=== PATIENT | female | born 1970 | race Two or more races ===

== ENCOUNTER 2019-09-16 16:53 | Emergency (ER) | payer OTHER ==
[2019-09-16] MEDS ORDERED: KETOROLAC TROMETHAMINE INJ/PF 30 MG/1 ML SDV IV ONE ×2 (17:26→19:48)
--- NOTE | 2019-09-16 17:29 | ER Document Report ---
ED Medical Screen (RME) - General Chief Complaint: Abdominal Pain Stated Complaint: ABDOMINAL PAIN, COUGH,CONGESTION Time Seen by Provider: 09/16/19 17:18 Notes: 40-year-old female with history of gastric bypass surgery 2 years ago, fibromyalgia, arthritis, frequent costochondritis presents to the emergency department with epigastric and right upper quadrant pain for the past 1+ week that got acutely worse today. Patient also has a cough and congestion. Patient states that the right upper quadrant pain is constant and stabbing. Nothing makes it better or worse. Is not worse after meals. Radiates around to her right upper back. Complains of fevers and chills, denies nausea or vomiting. Exam: Well-appearing no acute distress, lungs clear to auscultation, regular cardiac rate and rhythm, abdominal exam deferred in triage I have greeted and performed a rapid initial assessment of this patient. A comprehensive ED assessment and evaluation of the patient, analysis of test results and completion of medical decision making process will be conducted by an additional ED providers. - Related Data Allergies/Adverse Reactions: azithromycin [From Zithromax] Allergy (Verified 09/16/19 17:19) cefdinir [From Omnicef] Allergy (Verified 09/16/19 17:19) NSAIDS (Non-Steroidal Anti-Inflamma Adverse Reaction (Verified 09/16/19 17:19) Past Medical History - Social History Chew tobacco use (# tins/day): No Frequency of alcohol use: None Drug Abuse: None Physical Exam - Vital signs Vitals: Temp Pulse Resp BP Pulse Ox 98.0 F 83 15 101/65 99 09/16/19 17:00 09/16/19 17:00 09/16/19 17:00 09/16/19 17:00 09/16/19 17:00 Course - Vital Signs Vital signs: Temp Pulse Resp BP Pulse Ox 98.0 F 83 15 101/65 99 09/16/19 17:00 09/16/19 17:00 09/16/19 17:00 09/16/19 17:00 09/16/19 17:00
--- NOTE | 2019-09-16 18:06 | RADIOLOGY REPORT (SQ) ---
EXAM DESCRIPTION: U/S ABDOMEN LTD W/DOPPLER COMPLETED DATE/TIME: 09/16/2019 5:58 pm REASON FOR STUDY: RUQ pain COMPARISON: None. TECHNIQUE: Dynamic and static grayscale images acquired of the right upper quadrant and recorded on PACS. Additional selected color Doppler and spectral images recorded. LIMITATIONS: Study limited due to acoustical interference from fat or from air in the bowel. FINDINGS: PANCREAS: Visualized pancreas and duct normal. Parts of pancreas poorly seen secondary to acoustical interference from fat or from air in the bowel. LIVER: No masses. Echotexture normal. LIVER VASCULATURE: Normal directional flow of the main portal vein and hepatic veins. GALLBLADDER: Contracted without gross stones or suspicious wall thickening or pericholecystic fluid. ULTRASOUND-DETECTED SEVERINO'S SIGN: Negative. INTRAHEPATIC DUCTS AND COMMON DUCT: CBD and intrahepatic ducts normal caliber. No filling defects. INFERIOR VENA CAVA: Normal flow. AORTA: No aneurysm. RIGHT KIDNEY: Normal size. Normal echogenicity. No solid or suspicious masses. No hydronephrosis. No calcifications. PERITONEAL CAVITY AND RIGHT PLEURAL SPACE: No ascites or effusions. OTHER: No other significant finding. IMPRESSION: NORMAL RIGHT UPPER QUADRANT ULTRASOUND. PANCREAS PARTIALLY OBSCURED BY GAS. TECHNICAL DOCUMENTATION: JOB ID: [id number] [employer]- All Rights Reserved Reading location - IP/workstation name: [email or web address]
[2019-09-16 18:08] LABS: AMORPHOUS SEDIMENT,URINE TRACE /HPF; APPEARANCE,URINE SLIGHTLY-CLOUDY; BILIRUBIN,URINE NEGATIVE (NEGATIVE); COLOR,URINE YELLOW; GLUCOSE, URINE NEGATIVE (NEGATIVE); KETONES,URINE NEGATIVE (NEGATIVE); LEUKOCYTE ESTERASE,URINE NEGATIVE (NEGATIVE); NITRITE,URINE NEGATIVE (NEGATIVE); PROTEIN,URINE NEGATIVE (NEGATIVE); URINE SPECIFIC GRAVITY 1.016
[2019-09-16 18:47] LABS: ABSOLUTE BASOPHILS # (AUTO) 0.1 10^3/uL (0.0-0.2); ABSOLUTE EOSINOPHILS # (AUTO) 0.2 10^3/uL (0.0-0.6); ABSOLUTE LYMPHOCYTES (AUTO) 2.4 10^3/uL (0.5-4.7); ABSOLUTE MONOCYTES (AUTO) 0.5 10^3/uL (0.1-1.4); ABSOLUTE NEUT (AUTO) 5.8 10^3/uL (1.7-8.2); BASOPHILS % (AUTO) 0.7 % (0-2); EOSINOPHILS % (AUTO) 1.7 % (0-6); HEMATOCRIT 35.3 % (36.0-47.0); HEMOGLOBIN 12.3 g/dL (12.0-15.5); LYMPHOCYTES % (AUTO) 26.6 % (13-45); MEAN CORPUSCULAR HEMOGLOBIN 31.1 pg (27.0-33.4); MEAN CORPUSCULAR HGB CONC 34.8 g/dL (32.0-36.0); MEAN CORPUSCULAR VOLUME 89 fl (80-97); MONOCYTES % (AUTO) 6.1 % (3-13); PLATELET COUNT 259 10^3/uL (150-450); RED BLOOD COUNT 3.95 10^6/uL (3.72-5.28); RED CELL DISTRIBUTION WIDTH 13.2 % (11.5-14.0); SEGMENTED NEUTROPHILS % (AUTO) 64.9 % (42-78); TOTAL CELLS COUNTED % (AUTO) 100 %; WHITE BLOOD COUNT 8.9 10^3/uL (4.0-10.5)
[2019-09-16 19:09] LABS: A TYPE INFLUENZA AG NEGATIVE (NEGATIVE); B INFLUENZA AG NEGATIVE (NEGATIVE)
--- NOTE | 2019-09-16 19:13 | RADIOLOGY REPORT (SQ) ---
EXAM DESCRIPTION: CHEST 2 VIEWS COMPLETED DATE/TIME: 09/16/2019 7:04 pm REASON FOR STUDY: Cough congestion, chest pain COMPARISON: None. TECHNIQUE: Frontal and lateral radiographic views of the chest acquired. NUMBER OF VIEWS: Two view. LIMITATIONS: None. FINDINGS: LUNGS AND PLEURA: No opacities, masses or pneumothorax. No pleural effusion. MEDIASTINUM AND HILAR STRUCTURES: No masses or contour abnormalities. HEART AND VASCULAR STRUCTURES: Heart normal size. No evidence for failure. BONES: No acute findings. HARDWARE: None in the chest. OTHER: No other significant finding. IMPRESSION: NO SIGNIFICANT RADIOGRAPHIC FINDING IN THE CHEST. TECHNICAL DOCUMENTATION: JOB ID: [id number] [employer]- All Rights Reserved Reading location - IP/workstation name: [email or web address]
--- NOTE | 2019-09-16 19:18 | ER Document Report ---
Entered by GLORIA PENNINGTON SCRIBE 09/16/19 1806 Acting as scribe for:ROZINA ESTES MD ED General - General Chief Complaint: Abdominal Pain Stated Complaint: ABDOMINAL PAIN, COUGH,CONGESTION Time Seen by Provider: 09/16/19 17:18 Mode of Arrival: Ambulatory Information source: Patient Notes: This 48 year old female patient with a history of gastric bypass surgery p resents to the ED today with complaints of epigastric and RUQ pain for the past x3 days that has become more severe last night. Patient has an extensive past medical history involving her lower abdomen and states that this is the first time she has experienced pain in the upper abdomen. Patient states that she has had a productive cough and congestion for the past x1 week and has been taking tessalon perles and an albuterol nebulizer. Patient reports associated nasal drainage, but denies nausea or vomiting. Patient notes that she has not received a flu shot this year. - Related Data Allergies/Adverse Reactions: azithromycin [From Zithromax] Allergy (Verified 09/16/19 17:19) cefdinir [From Omnicef] Allergy (Verified 09/16/19 17:19) NSAIDS (Non-Steroidal Anti-Inflamma Adverse Reaction (Verified 09/16/19 17:19) Past Medical History - General Information source: Patient - Social History Smoking Status: Never Smoker Cigarette use (# per day): No Chew tobacco use (# tins/day): No Smoking Education Provided: No Frequency of alcohol use: None Drug Abuse: None Family History: Reviewed & Not Pertinent Patient has suicidal ideation: No Patient has homicidal ideation: No Pulmonary Medical History: Reports: Other - Costochondritis Renal/ Medical History: Reports: Hx Pelvic Inflammatory Disease Past Surgical History: Reports: Hx Appendectomy, Hx Gastric Bypass Surgery, Hx Hysterectomy, Hx Tubal Ligation Review of Systems - Review of Systems Constitutional: No symptoms reported EENT: See HPI, Nose congestion, Other - Nasal drainage Respiratory: See HPI, Cough, Sputum Gastrointestinal: See HPI, Abdominal pain. denies: Nausea, Vomiting Genitourinary: No symptoms reported Female Genitourinary: No symptoms reported Musculoskeletal: No symptoms reported Skin: No symptoms reported Hematologic/Lymphatic: No symptoms reported Neurological/Psychological: No symptoms reported -: Yes All other systems reviewed and negative Physical Exam - Vital signs Vitals: Temp Pulse Resp BP Pulse Ox 98.0 F 83 15 101/65 99 09/16/19 17:00 09/16/19 17:00 09/16/19 17:00 09/16/19 17:00 09/16/19 17:00 Interpretation: Normal - General General appearance: Alert - HEENT Head: Normocephalic, Atraumatic Eyes: Normal Pupils: PERRL Sinus: Other - Congestion Nasal: Clear rhinorrhea Pharynx: Normal - Respiratory Respiratory status: No respiratory distress Chest status: Tender - Right anterior lateral chest wall tenderness with palpation. Right inferior lateral chest wall tenderness with palpation. Breath sounds: Normal Chest palpation: Tender - Very tender to palpate the right upper quadrant abdomen, the right anterior inferior ribs, the right inferior lateral ribs. Pain is also made worse with deep breath, cough, and trying to do a sit up. - Cardiovascular Rhythm: Regular Heart sounds: Normal auscultation Murmur: No - Abdominal Inspection: Normal Distension: No distension Bowel sounds: Normal Tenderness: Tender - RUQ tenderness with palpation. Tender with palpation in area lateral and above rib margin. Organomegaly: No organomegaly - Back Back: Normal, Nontender - Extremities General upper extremity: Normal inspection General lower extremity: Normal inspection. No: Edema - No peripheral edema. - Neurological Neuro grossly intact: Yes - Psychological Associated symptoms: Normal affect, Normal mood - Skin Skin Temperature: Warm Skin Moisture: Dry Skin Color: Normal Course - Re-evaluation Re-evalutation: 09/16/19 19:19 Influenza test is negative. White blood cell count is consistent with a viral infection. Gallbladder ultrasound is negative, chest x-ray is negative. Urinalysis is unremarkable. Chem-12 was unremarkable. The patient has inhalers and nebulizer medications at home for wheezing if needed. She does have Tessalon Perles that she has been taking for cough. She does have oxycodone she takes on as-needed basis for pain, and I have advised her that this will also help with cough suppression. We will add prednisone to her regimen, and recommend she try Delsym DM for additional cough suppression. She is also recommended to limit talking as much as possible. All of these recommendations should help reduce her coughing, and in turn help reduce the chest wall and right upper quadrant abdominal wall pain she has been having related to her cough. - Vital Signs Vital signs: Temp Pulse Resp BP Pulse Ox 98.0 F 83 15 101/65 99 09/16/19 17:00 09/16/19 17:00 09/16/19 17:00 09/16/19 17:00 09/16/19 17:00 - Laboratory Result Diagrams: 09/16/19 18:25 09/16/19 18:25 Laboratory results interpreted by me: 09/16/19 09/16/19 09/16/19 17:30 18:25 18:25 Hct 35.3 L Glucose 71 L Urine Blood SMALL H Urine Urobilinogen 4.0 H - Diagnostic Test Radiology reviewed: Image reviewed, Reports reviewed - Gallbladder ultrasound is unremarkable. Chest x-ray is unremarkable. Discharge - Discharge Clinical Impression: Viral upper respiratory tract infection with cough Muscle strain of chest wall Qualifiers: Encounter type: initial encounter Qualified Code(s): S29.011A - Strain of muscle and tendon of front wall of thorax, initial encounter Condition: Stable Disposition: HOME, SELF-CARE Additional Instructions: Upper Respiratory Illness You have a viral infection of the respiratory passages -- a "cold." This common infection causes nasal congestion, drainage, and often sore throat and cough. It is caused by a virus and is highly contagious. The disease usually lasts a week or more, though the worst symptoms are usually over in 3 or 4 days. There is no "cure" for the viral infection -- it must run its course. If there is a complication, such as bacterial infection in the nose, sinuses, middle ear, or bronchial tubes, antibiotics may be required, but antibiotics won't affect the virus. If you smoke, you should STOP!! Drink plenty of fluids. A humidifier may help. An expectorant medication or decongestant may make you more comfortable. Use acetaminophen or ibuprofen for fever or aches. See the doctor if fever persists over two or three days, if there is any significant worsening of your symptoms, or if you simply fail to improve as expected. Chest Wall Pain Your chest pain has been diagnosed as coming from the chest wall. This is often caused by straining the muscles or joints in the chest during physical activity, direct trauma, coughing, or vigorous vomiting. Persons with arthritis are especially prone to this type of pain, due to inflammation of the cartilage joints near the breast bone. Occasionally, no cause can be found. Rest from strenuous physical activity. This kind of chest pain is usually made worse by movement of the chest. Depending on the symptoms, we may prescribe medicine for pain, muscle relaxation, and antiinflammatory effects. If the pain is new, and seems to be due to muscle strain, cold packs can help. Otherwise, apply gentle warmth to the painful area for 15 minutes every hour or two. You should contact the doctor immediately if things change. Further evaluation is needed if you develop a fever or cough, if the nature of the pain changes, or if you become short of breath. Start the prednisone tomorrow. Continue your inhalers and nebulizer medication as needed. Continue taking Tessalon Perles, take 200 mg every 8 hours for cough control. Take your oxycodone pain medication to help with pain and to help suppress your cough. Try adding the generic version of Delsym DM to help suppress your cough. Drink plenty of fluids and get plenty of rest. Rest your voice is much as possible. Follow-up with your primary care provider if not improving. RETURN TO THE EMERGENCY ROOM IF ANY NEW OR WORSENING SYMPTOMS. Prescriptions: Prednisone [Deltasone 10 mg Tablet] 10 mg PO ASDIR PRN #21 tablet PRN Reason: Scribe Attestation: 09/16/19 19:50 I personally performed the services described in the documentation, reviewed and edited the documentation which was dictated to the scribe in my presence, and it accurately records my words and actions. I personally performed the services described in the documentation, reviewed and edited the documentation which was dictated to the scribe in my presence, and it accurately records my words and actions.
[2019-09-16 19:40] LABS: ALBUMIN 3.9 g/dL (3.5-5.0); ALKALINE PHOSPHATASE 58 U/L (38-126); ANION GAP 8 (5-19); ASPARTATE AMINO TRANSFERASE 19 U/L (14-36); BILIRUBIN,DIRECT 0.2 mg/dL (0.0-0.4); BILIRUBIN,TOTAL 0.4 mg/dL (0.2-1.3); BLOOD UREA NITROGEN 15 mg/dL (7-20); CALCIUM 9.9 mg/dL (8.4-10.2); CARBON DIOXIDE 28 mmol/L (22-30); CHLORIDE 103 mmol/L (98-107); GLUCOSE 71 mg/dL (75-110); POTASSIUM 4.4 mmol/L (3.6-5.0); TOTAL PROTEIN 6.8 g/dL (6.3-8.2)
[2019-09-16] MEDS ORDERED: PREDNISONE 20 MG TABLET PO ONE (19:48)
[2019-09-16] MEDS ORDERED: ACETAMINOPHEN 325 MG TABLET PO ONE (19:48)
[2019-09-16 20:23] VITALS: BP 108/62
== END 2019-09-16 20:24 | disposition home or self-care (01) ==
LOC: ER 16:53
DX: J06.9 Acute upper respiratory infection, unspecified (principal); S29.011A Strain of muscle and tendon of front wall of thorax, initial encounter; R10.13 Epigastric pain; R10.11 Right upper quadrant pain; X58.XXXA Exposure to other specified factors, initial encounter; Z88.3 Allergy status to other anti-infective agents; Z90.710 Acquired absence of both cervix and uterus
CPT/HCPCS: 96376; 99284; 96374; 36415; 83690; 85025; 81025; 80053; 81001; 87804; 71046; 76705; 93976; J1885; J7512